=== PATIENT | female | born 1940 | race Caucasian/White ===

== ENCOUNTER → 2016-06-18 | Outpatient (CLI) | payer MEDICARE, OTHER ==
--- NOTE | 2016-06-18 10:52 | REP ---
Chest two views HISTORY: Acute pharyngitis Comparison: 09/05/2005 The lungs are clear. The heart is normal in size. The pulmonary vasculature is normal in appearance. The bony structure is intact. IMPRESSION: No acute disease. Signed by Mj Reyes MD 06/18/2016 10:43 A
== END ==
LOC: M WUC 09:38
PROVIDERS: ATTEND Physician Assistant Medical
DX: J04.0 Acute laryngitis (principal); R53.83 Other fatigue

== ENCOUNTER → 2016-09-21 | Outpatient (CLI) | payer MEDICARE, OTHER ==
[2016-09-21 17:53] LABS: MEAN CORPUSCULAR HEMOGLOBIN 32.3 pg (27.0-33.0); MEAN CORPUSCULAR HGB CONC 33.1 g/dl (32.0-36.5); MEAN CORPUSCULAR VOLUME 97.7 fl (80.0-96.0); RED CELL DISTRIBUTION WIDTH 12.7 % (11.5-14.5); WHITE BLOOD COUNT 4.8 K/mm3 (4.0-10.0)
[2016-09-21 18:07] LABS: ALBUMIN 3.6 GM/DL (3.2-5.2); ALBUMIN/GLOBULIN RATIO 1.13 (1.00-1.93); ALKALINE PHOSPHATASE 62 U/L (45-117); ALT/SGPT 21 U/L (12-78); ANION GAP 5 MEQ/L (8-16); AST/SGOT 18 U/L (15-37); BILIRUBIN,TOTAL 0.4 MG/DL (0.2-1.0); BLOOD UREA NITROGEN 15 MG/DL (7-18); CALCIUM LEVEL 8.6 MG/DL (8.8-10.2); CARBON DIOXIDE LEVEL 31 MEQ/L (21-32); CHLORIDE LEVEL 106 MEQ/L (98-107); CHOLESTEROL LEVEL 242 MG/DL (<200); CREATININE FOR GFR 0.73 MG/DL (0.55-1.02); GLOMERULAR FILTRATION RATE > 60.0 (>39); GLUCOSE, FASTING 93 MG/DL (83-110); SODIUM LEVEL 142 MEQ/L (136-145); TOTAL PROTEIN 6.8 GM/DL (6.4-8.2); TRIGLYCERIDES LEVEL 100 MG/DL (<150)
== END ==
LOC: M WUC 10:19
PROVIDERS: ATTEND Nurse Practitioner Adult Health
DX: Z00.00 Encounter for general adult medical examination without abnormal findings (principal); E55.9 Vitamin D deficiency, unspecified

== ENCOUNTER → 2016-10-21 | Outpatient (CLI) | payer MEDICARE, OTHER ==
--- NOTE | 2016-10-21 10:07 | REPMRS ---
Patient History The patient states she has not had a clinical breast exam in over a year. Patient is postmenopausal. Family history of colorectal cancer in brother at age 50 or over, prostate cancer in brother at age 50 or over, and colorectal cancer in brother at age 81. Digital Woman Screen Mammo: October 21, 2016 - Exam #: [id number] Bilateral CC and MLO view(s) were taken. Technologist: Nadiya Javed, Technologist Prior study comparison: September 04, 2015, digital woman screen mammo performed at [facility] [employer] [facility]. July 04, 2014, digital woman screen mammo performed at [facility]. July 01, 2013, digital woman screen mammo performed at [facility]. FINDINGS: There are scattered fibroglandular densities. There has been no change in the appearance of the mammogram from the prior studies. There is a mild amount of scattered fibroglandular density which is fairly symmetric. There is no interval development of dominant mass, architectural distortion, or clustered microcalcification suggestive of malignancy. ASSESSMENT: BI-RADS/ACR category 1 mammogram. Negative. Recommendation Routine screening mammogram in 1 year (for women over age 40). This mammogram was interpreted with the aid of an FDA-approved computer-aided dectection system. Electronically Signed By: Eddy Knutson MD 10/21/16 [id number]
--- NOTE | 2016-10-22 10:55 | DEXA ---
AP SPINE L1 - L4 1.239 0.4 2.6 LT FEMUR TOTAL 0.869 -1.1 1.0 RT FEMUR TOTAL 0.853 -1.2 0.9 TOTAL BODY TOTAL OTHER DUAL FEMUR FRAX* ASSESSMENT Risk factors: Father hip fracture. 10 year probability of fracture Major osteoporotic fracture 25.6 % Hip fracture 16.7 % COMMENTS: Normal bone densitometry of the spine. 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 The density of the spine is increased 6.4% since the initial exam on 02/17/2004. The spine density is decreased 1.4% since the most recent exam on 07/01/2013. The density of the left hip has increased 2.8% since the initial exam on 2003. The density of the left hip has decreased 1.0% since the most recent exam on . The density of the right hip has increased 2.9% since the initial exam on 2003. The density of the right hip has increased 0.0% since the most recent exam on . FOLLOW-UP: Recommendation for the next bone density exam: 2 years. ZHENG
== END ==
LOC: M WHC 08:58
PROVIDERS: ATTEND Nurse Practitioner Adult Health
DX: Z12.31 Encounter for screening mammogram for malignant neoplasm of breast (principal); M81.0 Age-related osteoporosis without current pathological fracture
CPT/HCPCS: 77080; G0202

== ENCOUNTER → 2017-03-25 | Outpatient (CLI) | payer MEDICARE, OTHER ==
[~2017-03-25] MED LIST: GASTROGRAFIN SOLUTION 30ML (Q9963) As Ordered ONE; ISOVUE-370 76% 100ML VIAL (Q9967) As Ordered ONE
--- NOTE | 2017-03-25 13:53 | REP ---
CT abdomen pelvis without and with IV contrast: There are no comparisons. The visualized lung rowell demonstrate a 5 mm nodule in the lateral sulcus of the right lung but are otherwise unremarkable. The unenhanced hepatic parenchyma is homogeneous and unremarkable. The gallbladder, pancreas and spleen are normal size are normal. The adrenals, kidneys and abdominal aorta are unremarkable. There is a large volume of fecal residue throughout the entire colon. There is no small bowel distension or obstruction.. Pelvis: The uterus, adnexa and bladder are unremarkable. There is no adenopathy or ascites. No diverticulosis or diverticulitis. Impression: Large volume of fecal residue throughout the colon without evidence of bowel obstruction. Otherwise, negative CT of the abdomen and pelvis. Signed by Liban Dunham MD 03/25/2017 01:44 P
== END ==
LOC: M RAD 10:58
PROVIDERS: ATTEND Nurse Practitioner Adult Health
DX: R10.9 Unspecified abdominal pain (principal)
CPT/HCPCS: 74178; Q9963; Q9967

== ENCOUNTER → 2017-06-16 | Outpatient (REF) | payer MEDICARE, OTHER ==
[2017-06-16 11:53] LABS: BASO # 0.1 10^3/uL (0.0-0.2); BASO % 1.5 % (0.0-1.0); EOS # 0.1 10^3/uL (0.0-0.50); EOS % 2.2 % (0.0-3.0); HEMATOCRIT 39.5 % (36.0-47.0); HEMOGLOBIN 13.1 g/dl (12.0-16.0); IMMATURE GRANULOCYTE % 0.2 % (0-0); LYMPH # 1.6 10^3/uL (1.5-4.5); LYMPH % 34.3 % (24.0-44.0); MEAN CORPUSCULAR HEMOGLOBIN 31.1 pg (27.0-33.0); MEAN CORPUSCULAR HGB CONC 33.2 g/dl (32.0-36.5); MEAN CORPUSCULAR VOLUME 93.8 fl (80.0-96.0); MONO # 0.4 10^3/uL (0.0-0.8); MONO % 9.3 % (0.0-5.0); NEUTROPHILS # 2.4 10^3/uL (1.8-7.7); NEUTROPHILS % 52.5 % (36.0-66.0); PLATELET COUNT, AUTOMATED 258 10^3/uL (150-450); RED BLOOD COUNT 4.21 10^6/uL (4.00-5.40); RED CELL DISTRIBUTION WIDTH 12.6 % (11.5-14.5); WHITE BLOOD COUNT 4.6 10^3/uL (4.0-10.0)
== END ==
LOC: M SFHCPLAZ 09:31
DX: R59.9 Enlarged lymph nodes, unspecified (principal)
CPT/HCPCS: 85025

== ENCOUNTER → 2017-09-16 | Outpatient (REF) | payer MEDICARE, OTHER ==
[2017-09-16 13:23] LABS: TOTAL 25(OH) VITAMIN D 51.1 NG/ML (30.0-100.0)
[2017-09-16 13:57] LABS: ALBUMIN 4.1 GM/DL (3.2-5.2); ALBUMIN/GLOBULIN RATIO 1.24 (1.00-1.93); ALKALINE PHOSPHATASE 72 U/L (45-117); ALT/SGPT 26 U/L (12-78); ANION GAP 6 MEQ/L (8-16); AST/SGOT 24 U/L (7-37); BILIRUBIN,TOTAL 0.5 MG/DL (0.2-1.0); BLOOD UREA NITROGEN 12 MG/DL (7-18); CALCIUM LEVEL 8.9 MG/DL (8.8-10.2); CARBON DIOXIDE LEVEL 29 MEQ/L (21-32); CHLORIDE LEVEL 106 MEQ/L (98-107); CHOLESTEROL LEVEL 231 MG/DL (<200); CHOLESTEROL RISK RATIO 2.595 (<5); CREATININE FOR GFR 0.68 MG/DL (0.55-1.30); GLOMERULAR FILTRATION RATE > 60.0 (>39); GLUCOSE, FASTING 88 MG/DL (70-100); HDL CHOLESTEROL 89 MG/DL (>40); LDL CHOLESTEROL 117.2 MG/DL (<100); NON-HDL-C 142 MG/DL; POTASSIUM SERUM 4.3 MEQ/L (3.5-5.1); SODIUM LEVEL 141 MEQ/L (136-145); TOTAL PROTEIN 7.4 GM/DL (6.4-8.2); TRIGLYCERIDES LEVEL 124 MG/DL (<150)
== END ==
LOC: M SFHCPLAZ 09:22
DX: Z00.00 Encounter for general adult medical examination without abnormal findings (principal); E55.9 Vitamin D deficiency, unspecified; E78.00 Pure hypercholesterolemia, unspecified
CPT/HCPCS: 84443

== ENCOUNTER → 2017-09-24 | Outpatient (CLI) | payer MEDICARE, OTHER | LOC: M RAD 08:55 | DX: R91.1 Solitary pulmonary nodule (principal) | CPT/HCPCS: 71250 ==

== ENCOUNTER → 2017-09-26 | Outpatient (CLI) | payer MEDICARE, OTHER ==
[~2017-09-26] MED LIST changes: +E-Z-GAS II EFFERVESCENT PACKET (SODIUM BICARB./CITRIC ACID/SIMETHICONE) As Ordered; +E-Z-HD 98% w/w 340GM SUSP BTL As Ordered; +E-Z-PAQUE 96% w/w SUSP 176GM BTL As Ordered; -GASTROGRAFIN SOLUTION 30ML (Q9963) As Ordered ONE; -ISOVUE-370 76% 100ML VIAL (Q9967) As Ordered ONE
== END ==
LOC: M RAD 08:30
DX: K21.9 Gastro-esophageal reflux disease without esophagitis (principal)
CPT/HCPCS: 74245

== ENCOUNTER → 2017-10-29 | Outpatient (CLI) | payer MEDICARE, OTHER | LOC: M WHC 12:57 | DX: Z12.31 Encounter for screening mammogram for malignant neoplasm of breast (principal) | CPT/HCPCS: 77067 ==

== ENCOUNTER → 2018-03-23 | Outpatient (REF) | payer MEDICARE, OTHER ==
[2018-03-23 11:42] LABS: ALBUMIN 3.7 GM/DL (3.2-5.2); ALBUMIN/GLOBULIN RATIO 1.12 (1.00-1.93); ALKALINE PHOSPHATASE 64 U/L (45-117); ALT/SGPT 28 U/L (12-78); ANION GAP 6 MEQ/L (8-16); AST/SGOT 26 U/L (7-37); BILIRUBIN,TOTAL 0.3 MG/DL (0.2-1.0); BLOOD UREA NITROGEN 12 MG/DL (7-18); CALCIUM LEVEL 8.7 MG/DL (8.8-10.2); CARBON DIOXIDE LEVEL 29 MEQ/L (21-32); CHLORIDE LEVEL 106 MEQ/L (98-107); CHOLESTEROL LEVEL 233 MG/DL (<200); CHOLESTEROL RISK RATIO 2.306 (<5); CREATININE FOR GFR 0.71 MG/DL (0.55-1.30); GLOMERULAR FILTRATION RATE > 60.0 (>39); GLUCOSE, FASTING 93 MG/DL (70-100); HDL CHOLESTEROL 101 MG/DL (>40); LDL CHOLESTEROL 109 MG/DL (<100); NON-HDL-C 132 MG/DL; POTASSIUM SERUM 4.5 MEQ/L (3.5-5.1); SODIUM LEVEL 141 MEQ/L (136-145); TRIGLYCERIDES LEVEL 114 MG/DL (<150)
[2018-03-23 11:48] LABS: TOTAL 25(OH) VITAMIN D 45.9 NG/ML (30.0-100.0)
== END ==
LOC: M SFHCPLAZ 08:45
DX: E78.00 Pure hypercholesterolemia, unspecified (principal); E55.9 Vitamin D deficiency, unspecified; K21.9 Gastro-esophageal reflux disease without esophagitis; M19.90 Unspecified osteoarthritis, unspecified site; M81.0 Age-related osteoporosis without current pathological fracture; Z80.0 Family history of malignant neoplasm of digestive organs
CPT/HCPCS: 80053

== ENCOUNTER → 2018-03-24 | Outpatient (CLI) | payer MEDICARE, OTHER | LOC: M RAD 06:52 | DX: R91.1 Solitary pulmonary nodule (principal); J47.9 Bronchiectasis, uncomplicated | CPT/HCPCS: 71250 ==

== ENCOUNTER → 2018-09-23 | Outpatient (REF) | payer MEDICARE, OTHER ==
[2018-09-23 11:00] LABS: ALBUMIN 3.6 GM/DL (3.2-5.2); ALT/SGPT 21 U/L (12-78); BILIRUBIN,TOTAL 0.5 MG/DL (0.2-1.0); BLOOD UREA NITROGEN 16 MG/DL (7-18); CALCIUM LEVEL 8.7 MG/DL (8.8-10.2); CARBON DIOXIDE LEVEL 31 MEQ/L (21-32); CHLORIDE LEVEL 104 MEQ/L (98-107); CHOLESTEROL LEVEL 224 MG/DL (<200); CHOLESTEROL RISK RATIO 3.111 (<5); CREATININE FOR GFR 0.83 MG/DL (0.55-1.30); GLOMERULAR FILTRATION RATE > 60.0 (>39); GLUCOSE, FASTING 86 MG/DL (70-100); HDL CHOLESTEROL 72 MG/DL (>40); LDL CHOLESTEROL 117 MG/DL (<100); NON-HDL-C 152 MG/DL; POTASSIUM SERUM 4.3 MEQ/L (3.5-5.1); SODIUM LEVEL 141 MEQ/L (136-145); TOTAL 25(OH) VITAMIN D 52.4 NG/ML (30.0-100.0); TRIGLYCERIDES LEVEL 174 MG/DL (<150)
== END ==
LOC: M SFHCPLAZ 08:40
PROVIDERS: ATTEND Nurse Practitioner Adult Health
DX: Z00.00 Encounter for general adult medical examination without abnormal findings (principal); E78.00 Pure hypercholesterolemia, unspecified; E55.9 Vitamin D deficiency, unspecified

== ENCOUNTER → 2018-12-24 | Outpatient (CLI) | payer MEDICARE, OTHER ==
--- NOTE | 2018-12-24 14:40 | REP ---
BILATERAL SCREENING DIGITAL MAMMOGRAM WITH 3D TOMOSYNTHESIS: There are no palpable abnormalities or other breast complaints. The the patient states she had a clinical breast examination . The the patient states she performs self-breast examinations two times per year. The Tyrer-Cuzick Score is: 3.3% . Comparison is 07/01/2012. There are scattered areas of fibroglandular density. There is no dominant mass, micro calcific cluster or architectural distortion that would indicate malignancy. There are no additional findings on 3D tomosynthesiss. There is no change from the prior study. Impression: BIRADS/ACR category 1 mammogram. Negative. Recommendation: Routine annual screening mammography. This mammogram was interpreted with the aid of a FDA approved computer-aided detection system. A. Negative mammogram reports should not delay biopsy if a dominant or clinically suspicious mass is present. B. Not all breast cancers are identified by mammography or tomosynthesis. C. Adenosis and dense breasts may obscure an underlying neoplasm. Patient letter M1. Electronically Signed by Liban Dunham MD 12/24/2018 02:31 P
== END ==
LOC: M WHC 13:27
PROVIDERS: ATTEND Nurse Practitioner Adult Health
DX: Z12.31 Encounter for screening mammogram for malignant neoplasm of breast (principal)

== ENCOUNTER → 2019-03-24 | Outpatient (REF) | payer MEDICARE, OTHER ==
[2019-03-24 11:03] LABS: ALBUMIN 3.8 GM/DL (3.2-5.2); ALT/SGPT 30 U/L (12-78); BILIRUBIN,TOTAL 0.7 MG/DL (0.2-1.0); BLOOD UREA NITROGEN 13 MG/DL (7-18); CALCIUM LEVEL 9.1 MG/DL (8.8-10.2); CARBON DIOXIDE LEVEL 30 MEQ/L (21-32); CHLORIDE LEVEL 106 MEQ/L (98-107); CHOLESTEROL LEVEL 241 MG/DL (<200); CHOLESTEROL RISK RATIO 1.991 (<5); GLOMERULAR FILTRATION RATE > 60.0 (>39); GLUCOSE, FASTING 86 MG/DL (70-100); HDL CHOLESTEROL 121 MG/DL (>40); LDL CHOLESTEROL 101 MG/DL (<100); NON-HDL-C 120 MG/DL; POTASSIUM SERUM 4.2 MEQ/L (3.5-5.1); SODIUM LEVEL 141 MEQ/L (136-145); TOTAL PROTEIN 7.5 GM/DL (6.4-8.2); TRIGLYCERIDES LEVEL 95 MG/DL (<150)
[2019-03-24 11:11] LABS: TOTAL 25(OH) VITAMIN D 55.9 NG/ML (30.0-100.0)
== END ==
LOC: M SFHCPLAZ 08:44
PROVIDERS: ATTEND Nurse Practitioner Adult Health
DX: E78.2 Mixed hyperlipidemia (principal); E55.9 Vitamin D deficiency, unspecified
CPT/HCPCS: 36415; 80053; 80061; 82306; G0463

== ENCOUNTER → 2019-06-08 | Outpatient (CLI) | payer MEDICARE, OTHER ==
--- NOTE | 2019-06-16 09:34 | DEXA ---
AP SPINE L1 - L4 1.172 -0.2 1.6 LT FEMUR TOTAL 0.866 -1.1 0.8 LT NECK 0.780 -1.9 0.2 RT FEMUR TOTAL 0.837 -1.4 0.6 RT NECK 0.759 -2.0 0.1 TOTAL BODY TOTAL OTHER COMMENTS: Normal bone densitometry of the spine. There is low bone density of the hips. The density of the spine has increased 0.7% since the initial exam on 02/17/2004. The spine density has decreased 5.4% since the most recent exam on 10/21/2016. The density of the left hip has increased 2.5% since the initial exam on 02/17/2004. The density of the left hip has decreased 0.3% since the most recent exam on 10/21/2016. The density of the right hip has increased 1.0% since the initial exam on 02/17/2004. The density of the right hip has decreased 1.9% since the most recent exam on 10/21/2016. FOLLOW-UP: Recommendation for the next bone density exam: 2 years. ZHENG
== END ==
LOC: M WHC 12:44
PROVIDERS: ATTEND Nurse Practitioner Adult Health
DX: M81.0 Age-related osteoporosis without current pathological fracture (principal)

== ENCOUNTER → 2019-10-18 | Outpatient (CLI) | payer MEDICARE, OTHER ==
[~2019-10-18] MED LIST changes: +CALC1TAB42 PO; +CIDA500T2 PO; +CIPR-249 PO; -E-Z-GAS II EFFERVESCENT PACKET (SODIUM BICARB./CITRIC ACID/SIMETHICONE) As Ordered; -E-Z-HD 98% w/w 340GM SUSP BTL As Ordered; -E-Z-PAQUE 96% w/w SUSP 176GM BTL As Ordered; +ECOT81TA5 PO; +FISH1000 PO; +MOBI4TAB PO; +MULTCAP PO; +OMEP-218 PO; +PRAV40TA2 PO; +VITAD1000T PO
== END ==
LOC: M LABSMTC 10:56
PROVIDERS: ATTEND Anesthesiology
DX: Z01.818 Encounter for other preprocedural examination (principal); Z11.59 Encounter for screening for other viral diseases
CPT/HCPCS: C9803; U0002

== ENCOUNTER 2019-10-20 08:32 | Day surgery (SDC) | payer MEDICARE, OTHER ==
[~2019-10-20] VITALS: Ht 154.9 cm; Wt 48.5 kg
[~2019-10-20 08:32] MED LIST changes: -CIPR-249 PO
[2019-10-20] MEDS ORDERED: propofoL 200 MG/20 ML VIAL As Ordered ONE (08:52)
[2019-10-20] MEDS ORDERED: LIDOCAINE 2% 100MG/5ML SDV (FOR ANES.) As Ordered ONE (08:52)
[2019-10-20] MEDS: NS 1,000 ML IV ONE (09:05)
--- NOTE | 2019-10-20 10:15 | ROOR ---
Patient Name: Mary Alice Marshall Procedure Date: 10/20/2019 9:44 AM Date of : 1940 Age: 79 Room: [facility] Gender: Female Note Status: Finalized Procedure: Total Colonoscopy to Cecum Indications: Colon cancer screening in patient at increased risk: Colorectal cancer in brother, High risk colon cancer surveillance: Personal history of colonic polyps Providers: Nirmal Rodriguez MD Referring MD: Daniela DUPREE NP Requesting Provider: Medicines: Monitored Anesthesia Care Complications: No immediate complications. Procedure: Pre-Anesthesia Assessment: - The heart rate, respiratory rate, oxygen saturations, blood pressure, adequacy of pulmonary ventilation, and response to care were monitored throughout the procedure. The Colonoscope was introduced through the anus and advanced to the cecum, identified by appendiceal orifice and ileocecal valve. The colonoscopy was performed without difficulty. The patient tolerated the procedure well. The quality of the bowel preparation was excellent. Findings: The perianal and digital rectal examinations were normal. Non-bleeding internal hemorrhoids were found during retroflexion. The hemorrhoids were small and Grade I (internal hemorrhoids that do not prolapse). Scattered small-mouthed diverticula were found in the recto-sigmoid colon, sigmoid colon and descending colon. The exam was otherwise without abnormality on direct and retroflexion views. Impression: - Non-bleeding internal hemorrhoids. - Diverticulosis in the recto-sigmoid colon, in the sigmoid colon and in the descending colon. - The examination was otherwise normal on direct and retroflexion views. - No specimens collected. - The exam was otherwise normal to the cecum. Recommendation: - Patient has a contact number available for emergencies. The signs and symptoms of potential delayed complications were discussed with the patient. Return to normal activities tomorrow. Written discharge instructions were provided to the patient. - High fiber diet. - Discharge patient to home. - Continue present medications. - Repeat colonoscopy for symptoms only. - Return to referring physician. - The findings and recommendations were discussed with the patient's family. Nirmal Rodriguez MD Nirmal Rodriguez MD 10/20/2019 10:15:12 AM Electronically signed by Nirmal Rodriguez MD Number of Addenda: 0 Note Initiated On: 10/20/2019 9:44 AM Estimated Blood Loss: Estimated blood loss: none.
[2019-10-20 10:30] VITALS: BP 110/63
== END 2019-10-20 10:43 | disposition home or self-care (01) ==
LOC: M OPP 08:32
PROVIDERS: ATTEND Internal Medicine Gastroenterology
DX: Z12.11 Encounter for screening for malignant neoplasm of colon (principal); Z86.010 Personal history of colon polyps; Z80.0 Family history of malignant neoplasm of digestive organs; K64.0 First degree hemorrhoids; K57.30 Diverticulosis of large intestine without perforation or abscess without bleeding; Z79.82 Long term (current) use of aspirin; Z79.899 Other long term (current) drug therapy; Z88.8 Allergy status to other drugs, medicaments and biological substances; Z87.891 Personal history of nicotine dependence

== ENCOUNTER 2019-10-23 01:18 | Emergency (ER) | payer MEDICARE, OTHER ==
[~2019-10-23] VITALS: Ht 154.9 cm; Wt 50.0 kg
--- NOTE | 2019-10-23 03:31 | REPVR ---
PROCEDURE INFORMATION: Exam: CT Abdomen And Pelvis Without Contrast Exam date and time: 10/23/2019 2:56 AM Age: 79 years old Clinical indication: Other: Hematuria; Additional info: Colic hematuria TECHNIQUE: Imaging protocol: Computed tomography of the abdomen and pelvis without contrast. Radiation optimization: All CT scans at this facility use at least one of these dose optimization techniques: automated exposure control; mA and/or kV adjustment per patient size (includes targeted exams where dose is matched to clinical indication); or iterative reconstruction. COMPARISON: CT ABD PELVIS W/O FOL BY WIT 03/25/2017 12:48 PM FINDINGS: Lungs: Stable small right lower lobe nodule. Liver: Normal. No mass. Gallbladder and bile ducts: Normal. No calcified stones. No ductal dilation. Pancreas: Normal. No ductal dilation. Spleen: Normal. No splenomegaly. Adrenals: Normal. No mass. Kidneys and ureters: Normal. No hydronephrosis. Stomach and bowel: Moderate amount of fecal material throughout the colon. No bowel obstruction. Appendix: No evidence of appendicitis. Intraperitoneal space: Unremarkable. No free air. No significant fluid collection. Vasculature: Unremarkable. No abdominal aortic aneurysm. Lymph nodes: Unremarkable. No enlarged lymph nodes. Bladder: Mild urinary bladder wall thickening suggesting cystitis. Mild surrounding stranding/edema. No bladder masses or calculi. Reproductive: Unremarkable as visualized. Bones/joints: Unremarkable. No acute fracture. Soft tissues: Unremarkable. IMPRESSION: 1. Urinary bladder wall thickening suggesting cystitis. 2. Mild constipation. Electronically signed by: Hal Romo On 10/23/2019 03:30:19 AM
[2019-10-23] MEDS: CIPROFLOXACIN 500MG TABLET PO ONE (04:00)
[2019-10-23] MEDS ORDERED: CIPR-249 PO (04:29)
[2019-10-23 04:37] VITALS: BP 129/59
== END 2019-10-23 04:41 | disposition home or self-care (01) ==
LOC: M ED 01:18
DX: N30.90 Cystitis, unspecified without hematuria (principal); M19.90 Unspecified osteoarthritis, unspecified site; K21.9 Gastro-esophageal reflux disease without esophagitis; E78.5 Hyperlipidemia, unspecified; Z88.8 Allergy status to other drugs, medicaments and biological substances; Z79.82 Long term (current) use of aspirin; Z79.899 Other long term (current) drug therapy

== ENCOUNTER → 2019-11-02 | Outpatient (REF) | payer MEDICARE, OTHER ==
[~2019-11-02] MED LIST changes: +CIPR-249 PO
[2019-11-02 14:23] LABS: APPEARANCE, URINE CLEAR (CLEAR); BACTERIA, URINE AUTO NEGATIVE (NEGATIVE); BILIRUBIN, URINE AUTO NEGATIVE (NEGATIVE); BLOOD, URINE BLOOD NEGATIVE (NEGATIVE); COLOR, URINE YELLOW (YELLOW); GLUCOSE, URINE (UA) AUTO NEGATIVE (NEGATIVE); KETONE, URINE AUTO NEGATIVE (NEGATIVE); LEUKOCYTE ESTERASE, URINE AUTO NEGATIVE (NEGATIVE); MUCUS, URINE SMALL (NEGATIVE); NITRITE, URINE AUTO NEGATIVE (NEGATIVE); PROTEIN, URINE AUTO NEGATIVE (NEGATIVE); RBC, URINE AUTO 1 /HPF (0-3); SPECIFIC GRAVITY URINE AUTO 1.018 (1.002-1.035); SQUAMOUS EPITHELIAL CELL UR AU 0 /HPF (0-6); UROBILINOGEN, URINE AUTO 0.2 mg/dL (0.0-2.0); WBC, URINE AUTO 0 /HPF (0-3)
[2019-11-02 14:32] LABS: ALBUMIN 4.1 GM/DL (3.2-5.2); BLOOD UREA NITROGEN 16 MG/DL (7-18); CALCIUM LEVEL 9.4 MG/DL (8.8-10.2); CARBON DIOXIDE LEVEL 32 MEQ/L (21-32); CHLORIDE LEVEL 105 MEQ/L (98-107); CREATININE FOR GFR 0.74 MG/DL (0.55-1.30); GLOMERULAR FILTRATION RATE > 60.0 (>39); GLUCOSE, FASTING 91 MG/DL (70-100); PHOSPHORUS LEVEL 2.6 MG/DL (2.5-4.9); POTASSIUM SERUM 4.6 MEQ/L (3.5-5.1); SODIUM LEVEL 139 MEQ/L (136-145)
== END ==
LOC: M SFHCPLAZ 11:25
PROVIDERS: ATTEND Family Medicine
DX: N39.0 Urinary tract infection, site not specified (principal)

== ENCOUNTER → 2019-12-10 | Outpatient (REF) | payer MEDICARE, OTHER ==
[~2019-12-10] MED LIST changes: +D31000TA2 PO; -VITAD1000T PO
[2019-12-10 11:25] LABS: HEMATOCRIT 39.3 % (36.0-47.0); HEMOGLOBIN 12.8 g/dl (12.0-15.5); MEAN CORPUSCULAR HGB CONC 32.6 g/dl (32.0-36.5); MEAN CORPUSCULAR VOLUME 95.2 fl (80.0-96.0); PLATELET COUNT, AUTOMATED 206 10^3/uL (150-450); RED BLOOD COUNT 4.13 10^6/uL (4.00-5.40); WHITE BLOOD COUNT 5.1 10^3/uL (4.0-10.0)
[2019-12-10 12:15] LABS: ALBUMIN 3.9 GM/DL (3.2-5.2); ALT/SGPT 27 U/L (12-78); BILIRUBIN,TOTAL 0.6 MG/DL (0.2-1.0); BLOOD UREA NITROGEN 11 MG/DL (7-18); CALCIUM LEVEL 9.1 MG/DL (8.8-10.2); CARBON DIOXIDE LEVEL 28 MEQ/L (21-32); CHLORIDE LEVEL 108 MEQ/L (98-107); CHOLESTEROL LEVEL 233 MG/DL (<200); CHOLESTEROL RISK RATIO 2.807 (<5); CREATININE FOR GFR 0.85 MG/DL (0.55-1.30); GLOMERULAR FILTRATION RATE > 60.0 (>39); GLUCOSE, FASTING 93 MG/DL (70-100); HDL CHOLESTEROL 83 MG/DL (>40); LDL CHOLESTEROL 131 MG/DL (<100); NON-HDL-C 150 MG/DL; POTASSIUM SERUM 4.1 MEQ/L (3.5-5.1); SODIUM LEVEL 141 MEQ/L (136-145); TOTAL 25(OH) VITAMIN D 67.1 NG/ML (30.0-100.0); TOTAL PROTEIN 7.2 GM/DL (6.4-8.2); TRIGLYCERIDES LEVEL 97 MG/DL (<150)
== END ==
LOC: M SFHCPLAZ 07:57
PROVIDERS: ATTEND Nurse Practitioner Adult Health
DX: Z00.00 Encounter for general adult medical examination without abnormal findings (principal); E78.2 Mixed hyperlipidemia; E55.9 Vitamin D deficiency, unspecified

== ENCOUNTER → 2019-12-27 | Outpatient (CLI) | payer MEDICARE, OTHER ==
--- NOTE | 2020-01-20 13:38 | REPMRS ---
Patient History The patient states she had a clinical breast exam in January 2019. Patient is postmenopausal. Family history of colorectal cancer at age 50 or over in brother, prostate cancer at age 50 or over in brother, colorectal cancer at age 81 in brother. Digital Woman Screen Mammo: December 27, 2019 - Exam #: [id number] Bilateral CC and MLO view(s) were taken. Technologist: Amarilis Farley, Technologist Prior study comparison: December 24, 2018, bilateral digital woman screen mammo performed at [facility]. October 30, 2017, digital woman screen mammo performed at [facility]. October 21, 2016, digital woman screen mammo performed at [facility]. FINDINGS: The breast tissue is heterogeneously dense. This may lower the sensitivity of mammography. The Volpara volumetric breast density category is: C. There is a moderate amount of heterogeneously dense fibroglandular tissue which is fairly symmetric. There is no interval development of dominant mass, architectural distortion, or grouped microcalcification typical of malignancy. There has been no change in the appearance of the mammogram from the prior studies. 3-D tomosynthesis shows no additional findings. Assessment: BI-RADS/ACR category 1 mammogram. Negative Mammogram. Recommendation Routine screening mammogram of both breasts in 1 year (for women over age 40). This patient's Lifetime Breast Cancer RIsk is estimated at 2.9 %. This mammogram was interpreted with the aid of an FDA-approved computer-aided dectection system. Electronically Signed By: Eddy Knutson MD 01/20/20 [id number]
== END ==
LOC: M WHC 11:30
PROVIDERS: ATTEND Nurse Practitioner Adult Health
DX: Z12.31 Encounter for screening mammogram for malignant neoplasm of breast (principal); Z78.0 Asymptomatic menopausal state; Z80.0 Family history of malignant neoplasm of digestive organs

== ENCOUNTER → 2020-03-17 | Outpatient (CLI) | payer MEDICARE, OTHER ==
--- NOTE | 2020-03-17 13:52 | REP ---
INDICATION: RIGHT NIPPLE RETRACTION/Q83.9/NIPPLE ANOMALY; RIGHT NIPPLE RETRACTION/Q83.9 NIPPLE ANORMALY. COMPARISON: Mammography December 27, 2019, December 24, 2018, October 29, 2017. TECHNIQUE: Right mediolateral, CC and MLO view(s) were taken. FINDINGS: Scattered fibroglandular elements are seen bilaterally. No suspicious or dominant density is seen. No microcalcification or architectural distortion is seen. No worrisome skin or nipple change is appreciated. 3-D tomosynthesis shows no additional finding. The Volpara volumetric breast density pattern is B. Sonographic Right retroareolar scanning shows normal stromal elements. No mass, cyst, dilated duct, or acoustic shadowing is seen. IMPRESSION: BIRADS/ACR category 1 negative mammographic and sonographic findings in the right breast.. This patient's Tyrer-Cuzick lifetime breast cancer risk assessment score is 2.9%. This mammogram was interpreted with the aid of an FDA-approved computer-aided detection system. The patient states she had a clinical breast exam in 17 March 2020. The patient letter being requested is M 2. RECOMMENDATION: Repeat screening mammography recommended in November of 2020. <Electronically signed by Eddy Knutson > 03/17/20 [id number]
== END ==
LOC: M WHC 12:31
PROVIDERS: ATTEND Surgery
DX: Q83.9 Congenital malformation of breast, unspecified (principal); N64.53 Retraction of nipple
CPT/HCPCS: 76642; 77065; G0279

== ENCOUNTER → 2020-03-23 | Outpatient (REF) | payer MEDICARE, OTHER ==
[2020-03-23 14:17] LABS: BLOOD UREA NITROGEN 18 MG/DL (7-18); CALCIUM LEVEL 9.7 MG/DL (8.8-10.2); CARBON DIOXIDE LEVEL 33 MEQ/L (21-32); CHLORIDE LEVEL 103 MEQ/L (98-107); CREATININE FOR GFR 0.84 MG/DL (0.55-1.30); GLOMERULAR FILTRATION RATE > 60.0 (>39); GLUCOSE, FASTING 79 MG/DL (70-100); POTASSIUM SERUM 4.4 MEQ/L (3.5-5.1); SODIUM LEVEL 139 MEQ/L (136-145)
== END ==
LOC: M PLALAB 09:24
PROVIDERS: ATTEND Surgery
DX: Q83.9 Congenital malformation of breast, unspecified (principal)

== ENCOUNTER → 2020-04-10 | Outpatient (CLI) | payer MEDICARE, OTHER ==
[~2020-04-10] MED LIST changes: +PROHANCE 279.3MG/ML 15ML VIAL As Ordered ONE
--- NOTE | 2020-04-10 18:09 | REP ---
INDICATION: FAMILY HX OF CANCER, ABNORMAL NIPPLE DISCHARGE. Right nipple retraction. Positive family history of cancer. COMPARISON: Comparison mammography and sonography March 17, 2020. TECHNIQUE: Three [place] MRI imaging was performed with a dedicated breast coil. Axial, coronal, and sagittal T1 and T2 weighted scans were obtained with and without fat saturation in the usual fashion. The study includes dynamically acquired post gadolinium-enhanced imaging with image subtraction. Maximum intensity projection and multi planar reformation imaging is included as well. This study is interpreted with the aid of [employer], an FDA approved computer aided detection (CAD) software program, on a dedicated breast MRI workstation. The gadolinium enhancement dose is 10 mL of intravenous ProHance. FINDINGS: There is moderate fibroglandular tissue in the subareolar regions bilaterally in a pattern which is symmetric. On MR images, the nipples do not appear to be retracted on either side. Right nipple is a little smaller than the left. There is a mild pattern background parenchymal enhancement. There is no evidence of adenopathy or significant breast cystic change. Dynamically acquired sequential postcontrast images show no suspicious focus of enhancement and/or washout to suggest malignancy in either breast. No suspicious morphologic abnormality is seen on high-resolution T1 and T2 weighted scans. Subtraction images show no additional abnormality. IMPRESSION: BI-RADS category 1-bilateral breast MRI findings. Clinical follow-up is advised. <Electronically signed by Eddy Knutson > 04/10/20 [id number]
== END ==
LOC: M RAD 14:51
PROVIDERS: ATTEND Surgery
DX: Q83.9 Congenital malformation of breast, unspecified (principal); Z80.9 Family history of malignant neoplasm, unspecified
CPT/HCPCS: A9576; C8908

== ENCOUNTER → 2020-05-03 | Outpatient (CLI) | payer MEDICARE, OTHER ==
[~2020-05-03] MED LIST changes: -PROHANCE 279.3MG/ML 15ML VIAL As Ordered ONE
--- NOTE | 2020-05-03 17:00 | REP ---
INDICATION: LT LEG PAIN SWELLING ? DVT. COMPARISON: None TECHNIQUE: Non vascular soft tissue ultrasonography of the medial left lower calf region just superior to the ankle FINDINGS: There are multiple small anechoic structures in what appears to be edematous subcutanea the largest of which measures 2.6 x 2 x 1.6 cm IMPRESSION: Tiny cysts. Etiology uncertain. No evidence of a well demarcated abscess. <Electronically signed by Rohan Mckeon > 05/03/20 [id number]
== END ==
LOC: M RAD 15:44
PROVIDERS: ATTEND Physician Assistant
DX: S89.92XA Unspecified injury of left lower leg, initial encounter (principal); M79.662 Pain in left lower leg; R22.42 Localized swelling, mass and lump, left lower limb; X58.XXXA Exposure to other specified factors, initial encounter; Y92.9 Unspecified place or not applicable; Y99.9 Unspecified external cause status

== ENCOUNTER → 2020-06-05 | Outpatient (REF) | payer MEDICARE, OTHER ==
[2020-06-05 13:01] LABS: ALBUMIN 3.8 GM/DL (3.2-5.2); ALT/SGPT 33 U/L (12-78); BILIRUBIN,TOTAL 0.5 MG/DL (0.2-1.0); BLOOD UREA NITROGEN 12 MG/DL (7-18); CALCIUM LEVEL 8.9 MG/DL (8.8-10.2); CARBON DIOXIDE LEVEL 30 MEQ/L (21-32); CHLORIDE LEVEL 106 MEQ/L (98-107); CHOLESTEROL LEVEL 252 MG/DL (<200); CHOLESTEROL RISK RATIO 3.111 (<5); CREATININE FOR GFR 0.77 MG/DL (0.55-1.30); GLOMERULAR FILTRATION RATE > 60.0 (>39); GLUCOSE, FASTING 92 MG/DL (70-100); HDL CHOLESTEROL 81 MG/DL (>40); LDL CHOLESTEROL 136 MG/DL (<100); NON-HDL-C 171 MG/DL; POTASSIUM SERUM 4.5 MEQ/L (3.5-5.1); SODIUM LEVEL 139 MEQ/L (136-145); TOTAL PROTEIN 7.1 GM/DL (6.4-8.2); TRIGLYCERIDES LEVEL 177 MG/DL (<150)
[2020-06-05 13:07] LABS: TOTAL 25(OH) VITAMIN D 54.7 NG/ML (30.0-100.0)
== END ==
LOC: M SFHCPLAZ 08:43
PROVIDERS: ATTEND Nurse Practitioner Adult Health
DX: E78.2 Mixed hyperlipidemia (principal); E55.9 Vitamin D deficiency, unspecified
CPT/HCPCS: 36415; 80053; 80061; 82306; G0463; G8482

== ENCOUNTER → 2020-06-30 | Outpatient (CLI) | payer MEDICARE, OTHER ==
--- NOTE | 2020-06-30 15:30 | REP ---
INDICATION: PAIN. COMPARISON: None. TECHNIQUE: AP and lateral views of the right calf are presented. FINDINGS: Two views of the right tib fib demonstrate normal bones, joints, and soft tissues. No fracture or subluxation is seen. No opaque foreign body noted. There is mild pretibial soft tissue swelling adjacent to the distal tibia. There is mild vascular calcification. IMPRESSION: No acute bony abnormality. Vascular calcification and minimal soft tissue swelling.. <Electronically signed by Eddy Knutson > 06/30/20 0290
--- NOTE | 2020-06-30 15:31 | REP ---
INDICATION: PAIN. COMPARISON: None. TECHNIQUE: Four views of the right ankle are presented. FINDINGS: There is an obliquely oriented nondisplaced distal fibular metaphyseal fracture. There is associated soft tissue swelling. Ankle mortise is intact. There is minimal distal fibular spurring. No tibial fracture is appreciated. There is Achilles calcaneal spurring. Mild vascular calcification is seen in the anterior tibial artery across the ankle. IMPRESSION: Distal fibular metaphyseal fracture obliquely oriented nondisplaced. Associated swelling. <Electronically signed by Eddy Knutson > 06/30/20 [id number]
--- NOTE | 2020-06-30 16:36 | REP ---
INDICATION: PAIN. COMPARISON: None. TECHNIQUE: Four views. FINDINGS: Four views of the right foot demonstrate mild diffuse osteopenia. There is a moderate hallux valgus and osteoarthritic changes are seen at the 1st MTP joint. There is Achilles calcaneal spurring. Mild vascular calcification is observed.. No fracture or subluxation is seen. No opaque foreign body noted. 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 No acute bony abnormality seen.. <Electronically signed by Eddy Knutson > 06/30/20 [id number]
== END ==
LOC: M WUC 13:43
PROVIDERS: ATTEND Physician Assistant
DX: S82.434A Nondisplaced oblique fracture of shaft of right fibula, initial encounter for closed fracture (principal); X58.XXXA Exposure to other specified factors, initial encounter; Y92.89 Other specified places as the place of occurrence of the external cause; Y93.89 Activity, other specified; Y99.8 Other external cause status; M19.071 Primary osteoarthritis, right ankle and foot; M20.11 Hallux valgus (acquired), right foot

== ENCOUNTER → 2020-11-07 | Outpatient (REF) | payer MEDICARE, OTHER ==
[2020-11-07 11:14] LABS: ALBUMIN 3.6 GM/DL (3.2-5.2); ALT/SGPT 30 U/L (12-78); BILIRUBIN,TOTAL 0.5 MG/DL (0.2-1.0); BLOOD UREA NITROGEN 15 MG/DL (7-18); CALCIUM LEVEL 8.8 MG/DL (8.8-10.2); CARBON DIOXIDE LEVEL 31 MEQ/L (21-32); CHLORIDE LEVEL 107 MEQ/L (98-107); CHOLESTEROL LEVEL 220 MG/DL (<200); CHOLESTEROL RISK RATIO 2.588 (<5); GLOMERULAR FILTRATION RATE > 60.0 (>32); GLUCOSE, FASTING 89 MG/DL (70-100); HDL CHOLESTEROL 85 MG/DL (>40); LDL CHOLESTEROL 112 MG/DL (<100); NON-HDL-C 135 MG/DL; SODIUM LEVEL 142 MEQ/L (136-145); TOTAL 25(OH) VITAMIN D 44.9 NG/ML (30.0-100.0); TOTAL PROTEIN 6.7 GM/DL (6.4-8.2); TRIGLYCERIDES LEVEL 113 MG/DL (<150)
== END ==
LOC: M SFHCPLAZ 08:41
PROVIDERS: ATTEND Nurse Practitioner Adult Health
DX: E55.9 Vitamin D deficiency, unspecified (principal); E78.2 Mixed hyperlipidemia
CPT/HCPCS: 36415; 80053; 80061; 82306; 84443; G0463

== ENCOUNTER → 2021-02-20 | Outpatient (CLI) | payer MEDICARE, OTHER ==
--- NOTE | 2021-02-20 14:20 | REP ---
INDICATION: LT SHOULDER IMPENGEMENT. COMPARISON: None. TECHNIQUE: Multiple views FINDINGS: The acromioclavicular and glenohumeral relationships are within normal limits. There is no acute fracture, dislocation, or subluxation. IMPRESSION: Within normal limits. <Electronically signed by Rohan Mckeon > 02/20/21 [id number]
== END ==
LOC: M SOG 13:59
PROVIDERS: ATTEND Orthopaedic Surgery Sports Medicine
DX: M75.42 Impingement syndrome of left shoulder (principal)

== ENCOUNTER → 2021-02-20 | Outpatient (CLI) | payer MEDICARE, OTHER ==
--- NOTE | 2021-02-20 11:15 | REPMRS ---
Patient History The patient states she had a clinical breast exam in January 2021. Family history of colorectal cancer at age 50 or over in brother, prostate cancer at age 50 or over in brother, colorectal cancer at age 81 in brother. Covid vaccine 06/2020 left arm. 07/2020 right arm. Patient states no breast complaints today. Patient has signed MRS History Sheet. Digital Woman Screen Mammo: February 20, 2021 - Exam #: [id number] Bilateral CC and MLO view(s) were taken. Technologist: RT Carlitos Prior study comparison: March 17, 2020, bilateral diagnostic unilateral mammo performed at [facility]. December 27, 2019, bilateral digital woman screen mammo performed at [facility]. FINDINGS: The breast tissue is heterogeneously dense. This may lower the sensitivity of mammography. Screening. Digital screening (2D) mammography was performed bilaterally in the CC and MLO projections. Additionally, breast tomosynthesis (3D mammography) was performed bilaterally in the CC and MLO projections. Todays exam was compared to the prior exam/exams. By history, the patient has no complaints of a palpable breast abnormality or other significant breast complaints. The breasts are unchanged in size and shape. There is a stable focal asymmetry in the UOQ of the left breast. There are no syd-soft tissue densities or spiculated masses. There is no internal architectural distortion. There are no suspicious syd-calcific clusters. Skin thickening or nipple retraction is not present. The Volpara volumetric breast density category is C, the breasts are heterogenously dense which may obscure small masses. IMPRESSION: BI-RADS Category 2- Benign Findings. There is no evidence of malignant alteration of the breasts. Followup examination recommended in one year. This mammogram was read with the assistance of [employer],an FDA approved computer aided detection system for mammography. The lifetime Tyrer-Cuzick score is 2.4% Negative x-ray reports should not delay surgical consultation if a dominant or clinically suspicious mass is present. Not all breast cancers can be identified by mammography. Therefore, we recommend that you continue to perform regular breast self-examination and physical examination and then promptly contact your physician of any concerns or changes. Adenosis and dense breasts may obscure an underlying neoplasm. No significant changes when compared with prior studies. Assessment: BI-RADS/ACR category 2 mammogram. Benign Findings. Recommendation Routine screening mammogram of both breasts in 1 year. Electronically Signed By: Paco Huang MD 02/20/21 [id number]
== END ==
LOC: M WHC 08:50
PROVIDERS: ATTEND Nurse Practitioner Adult Health
DX: Z12.31 Encounter for screening mammogram for malignant neoplasm of breast (principal); M75.42 Impingement syndrome of left shoulder

== ENCOUNTER → 2021-05-18 | Outpatient (CLI) | payer MEDICARE, OTHER ==
[~2021-05-18] MED LIST changes: +OMEP-173 PO; -OMEP-218 PO
[2021-05-18 12:55] LABS: BLOOD UREA NITROGEN 20 MG/DL (7-18); CARBON DIOXIDE LEVEL 29 MEQ/L (21-32); CHLORIDE LEVEL 105 MEQ/L (98-107); CREATININE FOR GFR 0.84 MG/DL (0.55-1.30); GLOMERULAR FILTRATION RATE > 60.0 (>32); GLUCOSE, FASTING 110 MG/DL (70-100); POTASSIUM SERUM 4.2 MEQ/L (3.5-5.1); SODIUM LEVEL 140 MEQ/L (136-145)
[2021-05-18 12:56] LABS: ALT/SGPT 29 U/L (12-78); BILIRUBIN,TOTAL 0.5 MG/DL (0.2-1.0); CALCIUM LEVEL 9.3 MG/DL (8.8-10.2); CHOLESTEROL LEVEL 234 MG/DL (<200); CHOLESTEROL RISK RATIO 2.543 (<5); HDL CHOLESTEROL 92 MG/DL (>40); LDL CHOLESTEROL 125 MG/DL (<100); NON-HDL-C 142 MG/DL; TRIGLYCERIDES LEVEL 83 MG/DL (<150)
[2021-05-18 12:57] LABS: TOTAL 25(OH) VITAMIN D 55.3 NG/ML (30.0-100.0)
== END ==
LOC: M PLALAB 08:32
PROVIDERS: ATTEND Nurse Practitioner Adult Health
DX: E78.2 Mixed hyperlipidemia (principal); E55.9 Vitamin D deficiency, unspecified; Z79.899 Other long term (current) drug therapy

== ENCOUNTER → 2021-06-06 | Outpatient (CLI) | payer MEDICARE, OTHER ==
[~2021-06-06] MED LIST changes: -OMEP-173 PO; +OMEP-218 PO
--- NOTE | 2021-06-06 10:01 | REP ---
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 COMPARISON: None. TECHNIQUE: Coronal oblique T1 and fat suppressed T2. Sagittal oblique fat suppressed T2. Axial adnns-[id number]-umsw and T2 FLASH. FINDINGS: There is mild to moderate hypertrophic degenerative change seen in the acromioclavicular joint. T2 hyper signal is seen within the joint. The acromion process is type 2. Patchy and linear T2 hyper signal is seen in the supraspinatus tendon without evidence of musculotendinous retraction. The supraspinatus muscle appears mildly atrophied. Patchy T2 hyper signal is seen in the subscapularis tendon. The biceps tendon resides within the bicipital groove. There is patchy T2 hyper signal seen in the biceps labral complex. Linear hyper signal is seen in the superior labrum. There is no glenohumeral joint effusion or significant fluid in the subcoracoid recess. The coracohumeral and coracoacromial ligaments are somewhat thickened. IMPRESSION: 1. 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 2. Supraspinatus and subscapularis tendinitis/tendinosis seen in conjunction with coracohumeral and coracoacromial ligamentous thickening consistent with the clinical diagnosis of impingement syndrome. 3. Evidence of a biceps labral complex tear and a superior labral tear. This could be better evaluated with shoulder MRI arthrography if clinically relevant. 4. Other findings as described above. <Electronically signed by Rohan Mckeon > 06/06/21 0997
== END ==
LOC: M PLAIMG 08:41
PROVIDERS: ATTEND Orthopaedic Surgery Sports Medicine
DX: M75.42 Impingement syndrome of left shoulder (principal)

== ENCOUNTER → 2021-11-29 | Outpatient (CLI) | payer MEDICARE, OTHER ==
[~2021-11-29] MED LIST changes: -D31000TA2 PO; +OMEP-173 PO; -OMEP-218 PO; +VITA100093 PO
[2021-11-29 14:22] LABS: ALBUMIN 4.4 GM/DL (3.2-5.2); ALT/SGPT 25 U/L (12-78); BLOOD UREA NITROGEN 12 MG/DL (7-18); CALCIUM LEVEL 9.5 MG/DL (8.8-10.2); CARBON DIOXIDE LEVEL 31 MEQ/L (21-32); CHLORIDE LEVEL 105 MEQ/L (98-107); CHOLESTEROL LEVEL 267 MG/DL (<200); CHOLESTEROL RISK RATIO 2.321 (<5); CREATININE FOR GFR 0.72 MG/DL (0.55-1.30); GLOMERULAR FILTRATION RATE > 60.0 (>32); GLUCOSE, FASTING 93 MG/DL (70-100); HDL CHOLESTEROL 115 MG/DL (>40); LDL CHOLESTEROL 132 MG/DL (<100); NON-HDL-C 152 MG/DL; POTASSIUM SERUM 4.4 MEQ/L (3.5-5.1); SODIUM LEVEL 139 MEQ/L (136-145); TOTAL PROTEIN 7.1 GM/DL (6.4-8.2); TRIGLYCERIDES LEVEL 99 MG/DL (<150)
[2021-11-29 14:31] LABS: TOTAL 25(OH) VITAMIN D 57.8 NG/ML (30.0-100.0)
== END ==
LOC: M PLALAB 10:57
PROVIDERS: ATTEND Nurse Practitioner Adult Health
DX: E55.9 Vitamin D deficiency, unspecified (principal); E78.2 Mixed hyperlipidemia; Z79.899 Other long term (current) drug therapy

== ENCOUNTER → 2022-02-11 | Outpatient (CLI) | payer MEDICARE, OTHER | LOC: M PLAIMG 08:09 | PROVIDERS: ATTEND Nurse Practitioner Adult Health | DX: R10.9 Unspecified abdominal pain (principal) ==

== ENCOUNTER → 2022-02-21 | Outpatient (CLI) | payer MEDICARE, OTHER | LOC: M RAD 14:12 | PROVIDERS: ATTEND Nurse Practitioner Adult Health | DX: R10.9 Unspecified abdominal pain (principal); R14.0 Abdominal distension (gaseous) ==

== ENCOUNTER → 2022-03-21 | Outpatient (CLI) | payer MEDICARE, OTHER | LOC: M WHC 09:48 | PROVIDERS: ATTEND Nurse Practitioner Family | DX: Z12.31 Encounter for screening mammogram for malignant neoplasm of breast (principal); Z13.820 Encounter for screening for osteoporosis; M85.89 Other specified disorders of bone density and structure, multiple sites ==

== ENCOUNTER → 2022-05-08 | Outpatient (REF) | payer MEDICARE, OTHER | LOC: M PLALAB 13:10 | PROVIDERS: ATTEND Nurse Practitioner Family | DX: Z12.4 Encounter for screening for malignant neoplasm of cervix (principal); N76.0 Acute vaginitis | CPT/HCPCS: 87624; G0123 ==

== ENCOUNTER → 2022-06-12 | Outpatient (CLI) | payer MEDICARE, OTHER ==
[2022-06-12 11:07] LABS: TOTAL 25(OH) VITAMIN D 65.1 NG/ML (20.0-100.0)
[2022-06-12 11:10] LABS: ALBUMIN 3.9 G/DL (3.2-5.2); ALKALINE PHOSPHATASE 101 U/L (46-116); ALT/SGPT 25 U/L (7.0-40); AST/SGOT 25 U/L (<34); BILIRUBIN,TOTAL 0.6 MG/DL (0.3-1.2); BLOOD UREA NITROGEN 13 MG/DL (9-23); CALCIUM LEVEL 9.3 MG/DL (8.3-10.6); CARBON DIOXIDE LEVEL 30 MMOL/L (20-31); CHLORIDE LEVEL 103 MMOL/L (98-107); CHOLESTEROL LEVEL 228 MG/DL (<200); CHOLESTEROL RISK RATIO 2.61 (<5); CREATININE FOR GFR 0.75 MG/DL (0.55-1.30); GLOMERULAR FILTRATION RATE > 60.0 (>32); GLUCOSE, FASTING 83 MG/DL (74-106); HDL CHOLESTEROL 87.3 MG/DL (>40); LDL CHOLESTEROL 123.5 MG/DL (<100); NON-HDL-C 141 MG/DL; POTASSIUM SERUM 4.4 MMOL/L (3.5-5.1); SODIUM LEVEL 140 MMOL/L (136-145); TOTAL PROTEIN 6.9 G/DL (5.7-8.2); TRIGLYCERIDES LEVEL 86 MG/DL (<150)
== END ==
LOC: M PLALAB 08:51
PROVIDERS: ATTEND Nurse Practitioner Adult Health
DX: E55.9 Vitamin D deficiency, unspecified (principal); E78.2 Mixed hyperlipidemia

== ENCOUNTER → 2022-06-13 | Outpatient (REF) | payer MEDICARE, OTHER | LOC: M SFHCPLAZ 16:49 | PROVIDERS: ATTEND Nurse Practitioner Adult Health | DX: R31.9 Hematuria, unspecified (principal) ==

== ENCOUNTER → 2022-07-01 | Outpatient (REF) | payer MEDICARE, OTHER ==
[2022-07-01 18:14] LABS: APPEARANCE, URINE MANUAL CLEAR (CLEAR); COLOR, URINE MANUAL LT YELLOW (YELLOW); SPECIFIC GRAVITY,URINE MANUAL 1.015 (1.002-1.035)
[2022-07-01 18:15] LABS: BILIRUBIN, URINE MANUAL NEGATIVE (NEGATIVE); BLOOD URINE MANUAL TRACE (NEGATIVE); GLUCOSE, URINE (UA) MANUAL NEGATIVE (NEGATIVE); KETONE, URINE MANUAL NEGATIVE (NEGATIVE); LEUKOCYTE ESTERASE, URINE MAN POSITIVE (NEGATIVE); NITRITE, URINE MANUAL NEGATIVE (NEGATIVE); PROTEIN, URINE MANUAL TRACE mg/dL (NEGATIVE); UROBILINOGEN, URINE MANUAL NORMAL (NORMAL)
[2022-07-01 18:29] LABS: SQUAMOUS EPITHELIAL CELL URINE SMALL AMOUNT /hpf (SMALL AMT); TRANSITIONAL EPI CELLS, URINE SMALL AMOUNT /hpf; WBC, URINE 20-30 /hpf (0-3)
[2022-07-01 18:30] LABS: BACTERIA, URINE SMALL AMOUNT; HYALINE CAST, URINE NONE SEEN /lpf (0-1)
== END ==
LOC: M SMT 17:06
PROVIDERS: ATTEND Urology
DX: N39.0 Urinary tract infection, site not specified (principal); R31.0 Gross hematuria

== ENCOUNTER → 2022-09-12 | Outpatient (CLI) | payer MEDICARE, OTHER ==
[~2022-09-12] MED LIST changes: +OMEG10002 PO; +VITA50TA43 PO; +VITMTA PO
[2022-09-12 17:31] LABS: BASO # 0.1 10^3/uL (0.0-0.2); BASO % 1.1 % (0.0-1.0); EOS # 0.1 10^3/uL (0.0-0.5); EOS % 2.1 % (0.0-3.0); HEMATOCRIT 39.6 % (36.0-47.0); LYMPH # 2.5 10^3/uL (1.5-5.0); LYMPH % 37.1 % (24.0-44.0); MEAN CORPUSCULAR HEMOGLOBIN 31.4 pg (27.0-33.0); MEAN CORPUSCULAR HGB CONC 32.8 g/dl (32.0-36.5); MEAN CORPUSCULAR VOLUME 95.7 fl (80.0-96.0); MONO # 0.6 10^3/uL (0.0-0.8); MONO % 9.6 % (2.0-8.0); NEUTROPHILS # 3.3 10^3/uL (1.5-8.5); NEUTROPHILS % 49.8 % (36.0-66.0); PLATELET COUNT, AUTOMATED 229 10^3/uL (150-450); RED BLOOD COUNT 4.14 10^6/uL (4.00-5.40); WHITE BLOOD COUNT 6.7 10^3/uL (4.0-10.0)
[2022-09-12 17:36] LABS: APPEARANCE, URINE CLEAR (CLEAR); BACTERIA, URINE AUTO NEGATIVE (NEGATIVE); BILIRUBIN, URINE AUTO NEGATIVE (NEGATIVE); BLOOD, URINE BLOOD NEGATIVE (NEGATIVE); COLOR, URINE YELLOW (YELLOW); GLUCOSE, URINE (UA) AUTO NEGATIVE (NEGATIVE); KETONE, URINE AUTO NEGATIVE (NEGATIVE); LEUKOCYTE ESTERASE, URINE AUTO 3+ (NEGATIVE); NITRITE, URINE AUTO NEGATIVE (NEGATIVE); PROTEIN, URINE AUTO NEGATIVE (NEGATIVE); RBC, URINE AUTO 0 /HPF (0-3); SPECIFIC GRAVITY URINE AUTO 1.009 (1.002-1.035); SQUAMOUS EPITHELIAL CELL UR AU 1 /HPF (0-6); UROBILINOGEN, URINE AUTO 0.2 mg/dL (0.0-2.0); WBC, URINE AUTO 21 /HPF (0-3)
[2022-09-12 17:48] LABS: INR 0.9; PROTHROMBIN TIME 12.3 SECONDS (12.5-14.5)
[2022-09-12 17:49] LABS: PARTIAL THROMBOPLASTIN TIME 29.7 SECONDS (24.8-34.2)
[2022-09-12 18:06] LABS: ALKALINE PHOSPHATASE 72 U/L (46-116); ALT/SGPT 26 U/L (7.0-40); AST/SGOT 26 U/L (<34); BILIRUBIN,TOTAL 0.4 MG/DL (0.3-1.2); BLOOD UREA NITROGEN 13 MG/DL (9-23); CALCIUM LEVEL 9.3 MG/DL (8.3-10.6); CARBON DIOXIDE LEVEL 30 MMOL/L (20-31); CHLORIDE LEVEL 103 MMOL/L (98-107); CREATININE FOR GFR 0.68 MG/DL (0.55-1.30); GLOMERULAR FILTRATION RATE > 60.0 (>32); GLUCOSE, FASTING 90 MG/DL (74-106); POTASSIUM SERUM 4.2 MMOL/L (3.5-5.1); SODIUM LEVEL 141 MMOL/L (136-145)
== END ==
LOC: M PLALAB 16:28
PROVIDERS: ATTEND Family Medicine
DX: Z01.818 Encounter for other preprocedural examination (principal); E78.00 Pure hypercholesterolemia, unspecified; Z79.82 Long term (current) use of aspirin; Z79.899 Other long term (current) drug therapy

== ENCOUNTER 2022-09-18 10:40 | Day surgery (SDC) | payer MEDICARE, OTHER ==
[~2022-09-18] VITALS: Ht 154.9 cm; Wt 49.0 kg
[~2022-09-18 10:40] MED LIST changes: +KETOROLAC 60MG 2ML VIAL As Ordered ONE; +LIDOCAINE 2% 100MG/5ML SDV (FOR ANES.) As Ordered ONE; +ONDANSETRON 4MG 2ML VIAL As Ordered ONE; +ROCURONIUM BROMIDE 50MG/5ML VIAL As Ordered ONE; +SUGAMMADEX SODIUM 500 MG/5 ML VIAL (BRIDION) As Ordered ONE; +ceFAZolin SOD 2 GM in IV 1 EA IV ONE; +propofoL 200 MG/20 ML VIAL As Ordered ONE
[2022-09-18] MEDS ORDERED: LR 1,000 ML IV SCH ×2 (10:45→15:05)
[2022-09-18] MEDS ORDERED: fentaNYL 250 MCG/5 ML INJECTION As Ordered ONE (10:47)
[2022-09-18 11:12] LABS: HEMATOCRIT 40.4 % (36.0-47.0); HEMOGLOBIN 13.5 g/dl (12.0-15.5); MEAN CORPUSCULAR HEMOGLOBIN 31.8 pg (27.0-33.0); MEAN CORPUSCULAR HGB CONC 33.4 g/dl (32.0-36.5); MEAN CORPUSCULAR VOLUME 95.1 fl (80.0-96.0); PLATELET COUNT, AUTOMATED 222 10^3/uL (150-450); RED BLOOD COUNT 4.25 10^6/uL (4.00-5.40); WHITE BLOOD COUNT 5.6 10^3/uL (4.0-10.0)
[2022-09-18] MEDS ORDERED: VASOPRESSIN INJ 20UNITS/ML 1ML VIAL As Ordered ONE (11:46)
[2022-09-18] MEDS ORDERED: METHYLENE BLUE 0.5% (5MG/ML) 10 ML AMP (PROVAYBLUE) As Ordered ONE (11:46)
[2022-09-18] MEDS ORDERED: SCOPOLAMINE 1MG TRANSDERMAL PATCH TOP SCH (11:50)
[2022-09-18] MEDS ORDERED: ACETAMINOPHEN 1000MG 100ML IV BAG As Ordered ONE (13:04)
[2022-09-18] MEDS ORDERED: ONDANSETRON 4MG 2ML VIAL IV PRN (15:05)
[2022-09-18] MEDS ORDERED: oxyCODONE 5MG TAB PO PRN (15:05)
[2022-09-18] MEDS: fentaNYL 100 MCG/2 ML INJECTION IV PRN ×2 (15:27→16:03)
[2022-09-18] MEDS: LR 1,000 ML IV SCH ×2 (15:30→23:30)
[2022-09-18] MEDS ORDERED: PERCOCET 5MG/325MG TAB PO PRN (15:35)
[2022-09-18] MEDS ORDERED: METOCLOPRAMIDE INJ 10MG/2ML VIAL IV PRN (15:50)
[2022-09-18 17:00] VITALS: BP 113/61
[2022-09-18 17:30] VITALS: BP 112/60
[2022-09-18 18:00] VITALS: BP 111/58
[2022-09-18 19:00] VITALS: BP 110/55
[2022-09-18] MEDS ORDERED: ONDANSETRON 4MG TAB PO PRN (20:40)
[2022-09-18 20:44] VITALS: BP 102/54
[2022-09-18] MEDS: KETOROLAC 30 MG/ML 1ML VIAL IV PRN (20:55)
[2022-09-18] MEDS: DOCUSATE SODIUM 100MG CAPSULE PO SCH (20:56)
[2022-09-18 22:13] VITALS: BP 101/53
[2022-09-19 02:51] VITALS: BP 92/46
[2022-09-19] MEDS: LR 1,000 ML IV SCH (03:17)
[2022-09-19 05:52] VITALS: BP 106/53
[2022-09-19 07:04] LABS: HEMATOCRIT 31.6 % (36.0-47.0); MEAN CORPUSCULAR HEMOGLOBIN 31.9 pg (27.0-33.0); MEAN CORPUSCULAR HGB CONC 33.2 g/dl (32.0-36.5); PLATELET COUNT, AUTOMATED 187 10^3/uL (150-450); RED BLOOD COUNT 3.29 10^6/uL (4.00-5.40); WHITE BLOOD COUNT 9.8 10^3/uL (4.0-10.0)
[2022-09-19 07:05] LABS: HEMOGLOBIN 10.5 g/dl (12.0-15.5)
[2022-09-19 07:25] LABS: ALBUMIN 2.9 G/DL (3.2-5.2); ALKALINE PHOSPHATASE 44 U/L (46-116); ALT/SGPT 14 U/L (7.0-40); AST/SGOT 17 U/L (<34); BILIRUBIN,TOTAL 0.6 MG/DL (0.3-1.2); BLOOD UREA NITROGEN 9 MG/DL (9-23); CALCIUM LEVEL 7.9 MG/DL (8.3-10.6); CARBON DIOXIDE LEVEL 26 MMOL/L (20-31); CHLORIDE LEVEL 104 MMOL/L (98-107); CREATININE FOR GFR 0.63 MG/DL (0.55-1.30); GLOMERULAR FILTRATION RATE > 60.0 (>32); GLUCOSE, FASTING 133 MG/DL (74-106); POTASSIUM SERUM 3.8 MMOL/L (3.5-5.1); SODIUM LEVEL 138 MMOL/L (136-145); TOTAL PROTEIN 5.5 G/DL (5.7-8.2)
[2022-09-19] MEDS: DOCUSATE SODIUM 100MG CAPSULE PO SCH (08:37)
[2022-09-19] MEDS: KETOROLAC 30 MG/ML 1ML VIAL IV PRN (08:38)
[2022-09-19] MEDS ORDERED: IBUP-1022 PO (09:49)
[2022-09-19] MEDS ORDERED: COLA100C5 PO (09:49)
== END 2022-09-19 10:45 | disposition home or self-care (01) ==
LOC: M SDC 10:40 → M MS5PR 16:50 → M SDC 09-19 10:45
PROVIDERS: ATTEND Specialist
DX: N81.4 Uterovaginal prolapse, unspecified (principal); N81.10 Cystocele, unspecified; J30.2 Other seasonal allergic rhinitis; M81.0 Age-related osteoporosis without current pathological fracture; E78.5 Hyperlipidemia, unspecified; Z79.899 Other long term (current) drug therapy; Z88.8 Allergy status to other drugs, medicaments and biological substances
CPT/HCPCS: 36415; 57240; 57283; 58262; 80053; 85027; 86850; 86900; 86901; 88307; 96374; 96376; J0131; J1100; J1885; J2405; J2765; J3010

== ENCOUNTER → 2022-11-27 | Outpatient (CLI) | payer MEDICARE, OTHER ==
[~2022-11-27] MED LIST changes: +COLA100C5 PO; +IBUP-1022 PO; -KETOROLAC 60MG 2ML VIAL As Ordered ONE; -LIDOCAINE 2% 100MG/5ML SDV (FOR ANES.) As Ordered ONE; -ONDANSETRON 4MG 2ML VIAL As Ordered ONE; -ROCURONIUM BROMIDE 50MG/5ML VIAL As Ordered ONE; -SUGAMMADEX SODIUM 500 MG/5 ML VIAL (BRIDION) As Ordered ONE; -ceFAZolin SOD 2 GM in IV 1 EA IV ONE; -propofoL 200 MG/20 ML VIAL As Ordered ONE
[2022-11-27 14:59] LABS: BLOOD UREA NITROGEN 17 MG/DL (9-23); CALCIUM LEVEL 9.1 MG/DL (8.3-10.6); CARBON DIOXIDE LEVEL 30 MMOL/L (20-31); CHLORIDE LEVEL 105 MMOL/L (98-107); CHOLESTEROL LEVEL 214 MG/DL (<200); CHOLESTEROL RISK RATIO 2.54 (<5); CREATININE FOR GFR 0.66 MG/DL (0.55-1.30); GLOMERULAR FILTRATION RATE > 60.0 (>32); GLUCOSE, FASTING 98 MG/DL (74-106); LDL CHOLESTEROL 109.8 MG/DL (<100); POTASSIUM SERUM 4.1 MMOL/L (3.5-5.1); SODIUM LEVEL 141 MMOL/L (136-145); TRIGLYCERIDES LEVEL 101 MG/DL (<150)
== END ==
LOC: M PLALAB 10:10
PROVIDERS: ATTEND Nurse Practitioner Adult Health
DX: E78.2 Mixed hyperlipidemia (principal); R03.0 Elevated blood-pressure reading, without diagnosis of hypertension

== ENCOUNTER → 2023-04-07 | Outpatient (CLI) | payer MEDICARE, OTHER | LOC: M WHC 07:56 | PROVIDERS: ATTEND Nurse Practitioner Adult Health | DX: Z12.31 Encounter for screening mammogram for malignant neoplasm of breast (principal) ==

== ENCOUNTER → 2023-06-16 | Outpatient (CLI) | payer MEDICARE, OTHER ==
[2023-06-16 12:35] LABS: HEMATOCRIT 42.5 % (36.0-47.0); HEMOGLOBIN 13.9 g/dl (12.0-15.5); MEAN CORPUSCULAR HEMOGLOBIN 31.1 pg (27.0-33.0); MEAN CORPUSCULAR HGB CONC 32.7 g/dl (32.0-36.5); MEAN CORPUSCULAR VOLUME 95.1 fl (80.0-96.0); PLATELET COUNT, AUTOMATED 224 10^3/uL (150-450); RED BLOOD COUNT 4.47 10^6/uL (4.00-5.40); WHITE BLOOD COUNT 5.1 10^3/uL (4.0-10.0)
[2023-06-16 13:02] LABS: ALBUMIN 4.1 G/DL (3.2-5.2); ALKALINE PHOSPHATASE 69 U/L (46-116); ALT/SGPT 26 U/L (7.0-40); AST/SGOT 22 U/L (<34); BILIRUBIN,TOTAL 0.6 MG/DL (0.3-1.2); BLOOD UREA NITROGEN 16 MG/DL (9-23); CALCIUM LEVEL 9.4 MG/DL (8.3-10.6); CARBON DIOXIDE LEVEL 30 MMOL/L (20-31); CHLORIDE LEVEL 107 MMOL/L (98-107); CHOLESTEROL LEVEL 239 MG/DL (<200); CHOLESTEROL RISK RATIO 2.58 (<5); CREATININE FOR GFR 0.72 MG/DL (0.55-1.30); GLOMERULAR FILTRATION RATE > 60.0 (>32); GLUCOSE, FASTING 94 MG/DL (74-106); HDL CHOLESTEROL 92.3 MG/DL (>40); LDL CHOLESTEROL 127.1 MG/DL (<100); NON-HDL-C 146.7 MG/DL; POTASSIUM SERUM 4.3 MMOL/L (3.5-5.1); SODIUM LEVEL 140 MMOL/L (136-145); TOTAL PROTEIN 7.1 G/DL (5.7-8.2); TRIGLYCERIDES LEVEL 98 MG/DL (<150)
[2023-06-16 13:03] LABS: FERRITIN 82.9 NG/ML (7.3-270.7); FREE T4 1.17 NG/DL (0.89-1.76); THYROID STIMULATING HORMONE 2.174 uIU/ML (0.55-4.78)
[2023-06-16 13:04] LABS: TOTAL 25(OH) VITAMIN D 60.4 NG/ML (20.0-100.0)
== END ==
LOC: M PLALAB 11:26
PROVIDERS: ATTEND Nurse Practitioner Adult Health
DX: E78.2 Mixed hyperlipidemia (principal); E55.9 Vitamin D deficiency, unspecified; R42 Dizziness and giddiness; Z79.899 Other long term (current) drug therapy; Z86.39 Personal history of other endocrine, nutritional and metabolic disease

== ENCOUNTER → 2023-12-15 | Outpatient (CLI) | payer MEDICARE, OTHER ==
[2023-12-15 14:00] LABS: ALBUMIN 3.7 G/DL (3.2-5.2); ALKALINE PHOSPHATASE 66 U/L (46-116); ALT/SGPT 27 U/L (7.0-40); AST/SGOT 19 U/L (<34); BILIRUBIN,TOTAL 0.7 MG/DL (0.3-1.2); BLOOD UREA NITROGEN 13 MG/DL (9-23); CALCIUM LEVEL 9.1 MG/DL (8.3-10.6); CARBON DIOXIDE LEVEL 29 MMOL/L (20-31); CHLORIDE LEVEL 104 MMOL/L (98-107); CHOLESTEROL LEVEL 219 MG/DL (<200); CHOLESTEROL RISK RATIO 2.56 (<5); CREATININE FOR GFR 0.76 MG/DL (0.55-1.30); GLOMERULAR FILTRATION RATE > 60.0 (>32); GLUCOSE, FASTING 90 MG/DL (74-106); HDL CHOLESTEROL 85.4 MG/DL (>40); LDL CHOLESTEROL 113.2 MG/DL (<100); NON-HDL-C 133.6 MG/DL; POTASSIUM SERUM 4.2 MMOL/L (3.5-5.1); SODIUM LEVEL 135 MMOL/L (136-145); TOTAL PROTEIN 6.5 G/DL (5.7-8.2); TRIGLYCERIDES LEVEL 102 MG/DL (<150)
[2023-12-15 14:02] LABS: THYROID STIMULATING HORMONE 2.758 uIU/ML (0.55-4.78)
[2023-12-15 14:03] LABS: TOTAL 25(OH) VITAMIN D 63.8 NG/ML (20.0-100.0)
[2023-12-16 09:28] LABS: URIC ACID 4.5 MG/DL (3.1-7.8)
== END ==
LOC: M PLALAB 09:06
PROVIDERS: ATTEND Nurse Practitioner Adult Health
DX: Z00.00 Encounter for general adult medical examination without abnormal findings (principal); E78.2 Mixed hyperlipidemia; E55.9 Vitamin D deficiency, unspecified

== ENCOUNTER → 2023-12-16 | Outpatient (CLI) | payer MEDICARE, OTHER | LOC: M PLAIMG 09:17 | PROVIDERS: ATTEND Nurse Practitioner Adult Health | DX: Z01.419 Encounter for gynecological examination (general) (routine) without abnormal findings (principal); M19.042 Primary osteoarthritis, left hand; M79.89 Other specified soft tissue disorders; N88.8 Other specified noninflammatory disorders of cervix uteri ==

== ENCOUNTER → 2024-03-03 | Outpatient (CLI) | payer MEDICARE, OTHER ==
[2024-03-03 12:26] LABS: HEMATOCRIT 38.5 % (36.0-47.0); HEMOGLOBIN 12.7 g/dl (12.0-15.5); MEAN CORPUSCULAR HEMOGLOBIN 31.1 pg (27.0-33.0); MEAN CORPUSCULAR VOLUME 94.4 fl (80.0-96.0); PLATELET COUNT, AUTOMATED 233 10^3/uL (150-450); RED BLOOD COUNT 4.08 10^6/uL (4.00-5.40); WHITE BLOOD COUNT 5.6 10^3/uL (4.0-10.0)
== END ==
LOC: M PLAIMG 11:19
PROVIDERS: ATTEND Internal Medicine Pulmonary Disease
DX: R06.00 Dyspnea, unspecified (principal); J47.9 Bronchiectasis, uncomplicated

== ENCOUNTER → 2024-03-10 | Outpatient (CLI) | payer MEDICARE, OTHER ==
[2024-03-10 18:43] LABS: BLOOD UREA NITROGEN 17 MG/DL (9-23); CALCIUM LEVEL 9.6 MG/DL (8.3-10.6); CARBON DIOXIDE LEVEL 29 MMOL/L (20-31); CHLORIDE LEVEL 106 MMOL/L (98-107); CREATININE FOR GFR 0.71 MG/DL (0.55-1.30); GLOMERULAR FILTRATION RATE > 60.0 (>32); GLUCOSE, FASTING 80 MG/DL (74-106); SODIUM LEVEL 141 MMOL/L (136-145)
== END ==
LOC: M PLALAB 16:10
PROVIDERS: ATTEND Nurse Practitioner Adult Health
DX: H25.13 Age-related nuclear cataract, bilateral (principal)

== ENCOUNTER → 2024-04-09 | Outpatient (CLI) | payer MEDICARE, OTHER | LOC: M WHC 10:35 | PROVIDERS: ATTEND Nurse Practitioner Adult Health | DX: Z12.31 Encounter for screening mammogram for malignant neoplasm of breast (principal) ==

== ENCOUNTER → 2024-06-14 | Outpatient (CLI) | payer MEDICARE, OTHER ==
[2024-06-14 11:07] LABS: ALBUMIN 3.9 G/DL (3.2-5.2); ALKALINE PHOSPHATASE 77 U/L (35-104); ALT/SGPT 22 U/L (7.0-40); AST/SGOT 24 U/L (<34); BILIRUBIN,TOTAL 0.6 MG/DL (0.3-1.2); BLOOD UREA NITROGEN 19 MG/DL (9-23); CALCIUM LEVEL 9.2 MG/DL (8.3-10.6); CARBON DIOXIDE LEVEL 27 MMOL/L (20-31); CHLORIDE LEVEL 107 MMOL/L (98-107); CHOLESTEROL LEVEL 232 MG/DL (<200); CHOLESTEROL RISK RATIO 2.47 (<5); CREATININE FOR GFR 0.74 MG/DL (0.55-1.30); GLOMERULAR FILTRATION RATE > 60.0 (>32); GLUCOSE, FASTING 89 MG/DL (74-106); HDL CHOLESTEROL 93.8 MG/DL (>40); LDL CHOLESTEROL 124.8 MG/DL (<100); NON-HDL-C 138.2 MG/DL; POTASSIUM SERUM 4.4 MMOL/L (3.5-5.1); SODIUM LEVEL 140 MMOL/L (136-145); TOTAL PROTEIN 7.1 G/DL (5.7-8.2); TRIGLYCERIDES LEVEL 67 MG/DL (<150)
[2024-06-14 11:08] LABS: THYROID STIMULATING HORMONE 2.674 uIU/ML (0.55-4.78); TOTAL 25(OH) VITAMIN D 58.1 NG/ML (20.0-100.0)
[2024-06-14 11:09] LABS: FREE T4 1.17 NG/DL (0.89-1.76)
== END ==
LOC: M PLALAB 09:03
PROVIDERS: ATTEND Nurse Practitioner Adult Health
DX: E78.2 Mixed hyperlipidemia (principal); E55.9 Vitamin D deficiency, unspecified

== ENCOUNTER → 2025-01-21 | Outpatient (CLI) | payer MEDICARE, OTHER ==
[~2025-01-21] MED LIST changes: -IBUP-1022 PO; +IBUP600T42 PO; -PRAV40TA2 PO; +PRAV40TA85 PO
[2025-01-21 11:06] LABS: ALT/SGPT 24.0 U/L (7.0-40); AST/SGOT 27.0 U/L (<34); CALCIUM LEVEL 9.4 MG/DL (8.3-10.6); CARBON DIOXIDE LEVEL 29.0 MMOL/L (20-31); CHLORIDE LEVEL 103.0 MMOL/L (98-107); CHOLESTEROL LEVEL 225.0 MG/DL (<200); CHOLESTEROL RISK RATIO 2.63 (<5); CREATININE FOR GFR 0.79 MG/DL (0.55-1.30); GLOMERULAR FILTRATION RATE 73.7 (>32); LDL CHOLESTEROL 119.7 MG/DL (<100); NON-HDL-C 139.7 MG/DL; POTASSIUM SERUM 4.5 MMOL/L (3.5-5.1); SODIUM LEVEL 141.0 MMOL/L (136-145); TRIGLYCERIDES LEVEL 100.0 MG/DL (<150)
[2025-01-21 11:07] LABS: TOTAL 25(OH) VITAMIN D 62.4 NG/ML (20.0-100.0)
[2025-01-21 11:08] LABS: FREE T4 1.08 NG/DL (0.89-1.76)
== END ==
LOC: M PLALAB 08:13
PROVIDERS: ATTEND Nurse Practitioner Adult Health
DX: E78.2 Mixed hyperlipidemia (principal)

== ENCOUNTER → 2025-04-11 | Outpatient (CLI) | payer MEDICARE, OTHER | LOC: M WHC 13:28 | PROVIDERS: ATTEND Student in an Organized Health Care Education/Training Program | DX: Z12.31 Encounter for screening mammogram for malignant neoplasm of breast (principal); R92.323 Mammographic fibroglandular density, bilateral breasts ==